=== PATIENT | female | born 1985 | race Caucasian/White ===

== ENCOUNTER 2022-11-22 18:00 | Inpatient (IN) | payer BC ==
[2022-11-22 22:33] VITALS: BMI 24.5
[2022-11-22] MEDS ORDERED: hydrALAZINE 20 MG/ML VIAL SLOW IVP PRN (22:35)
[2022-11-22] MEDS ORDERED: NS w/ Oxytocin 30 units 500 ML IV SCH ×2 (22:35→23:15)
[2022-11-22] MEDS ORDERED: Carboprost 250 MCG/ML AMP IM PRN (22:35)
[2022-11-22] MEDS ORDERED: Diphenoxylate HCl/Atropine Tablet PO PRN (22:35)
[2022-11-22] MEDS ORDERED: Ibuprofen 800 MG TAB PO PRN (22:35)
[2022-11-22] MEDS ORDERED: Lidocaine 1% (PF) 30 ML VIAL SC PRN (22:35)
[2022-11-22] MEDS ORDERED: Butorphanol Tartrate 1 MG/ML VIAL SLOW IVP PRN (22:35)
[2022-11-22] MEDS ORDERED: Ondansetron PF 4 MG/2 ML Vial IVP PRN (22:35)
[2022-11-22] MEDS ORDERED: HYDROcodone/Acetaminophen 5/325 mg Tablet PO PRN (22:35)
[2022-11-22] MEDS ORDERED: Promethazine HCl 25 MG/ML VIAL IM PRN (22:35)
[2022-11-22] MEDS ORDERED: Methylergonovine 0.2 MG/ML VIAL IM PRN (22:35)
[2022-11-22] MEDS ORDERED: Misoprostol 200 MCG TAB PR PRN (22:35)
[2022-11-22] MEDS ORDERED: Zolpidem Tartrate 5 MG TAB PO PRN (22:35)
[2022-11-22] MEDS ORDERED: Acetaminophen 500 MG TAB PO PRN (22:35)
[2022-11-22 23:28] LABS: Hemoglobin 11.2 g/dL (12.0-15.5); Mean Corpuscular HGB CONC 34.6 g/dL (32.0-36.0); Mean Corpuscular Hemoglobin 30.7 pg (27.0-33.0); Mean Corpuscular Volume 88.8 fl (81.6-98.3); Mean Platelet Volume 10.6 fl (7.4-10.4); Platelet Count 202 10x3/uL (150-450); RBC Distribution Width 13.1 % (11.5-14.5); Red Blood Cell (RBC) Count 3.65 10x6/uL (3.90-5.03); White Blood Cell (WBC) Count 9.9 10x3/uL (3.5-10.5)
[2022-11-22] MEDS: Misoprostol 100 MCG TAB VAG SCH (23:38)
[2022-11-22] MEDS: Lactated Ringer's 1,000 ML IV SCH (23:39)
[2022-11-22 23:58] LABS: HBSAg Index 0.17 S/CO (0-0.99); Hep B Surf Ag Non-Reactive S/CO (NonReactive)
[2022-11-22 23:59] LABS: Syphilis Antibody Nonreactive (Nonreactive); Syphilis Antibody Index 0.03 S/CO (<1.00 Non-Reactive)
[2022-11-23 00:25] LABS: SARS-CoV-2 NAA Rapid Test Not Detected (NotDetected)
[2022-11-23] MEDS: Misoprostol 100 MCG TAB VAG SCH ×2 (05:21→18:08)
[2022-11-23] MEDS ORDERED: Fentanyl 2 mcg/Bup 0.1% Cadd 100 ML ONE (12:12)
[2022-11-23] MEDS ORDERED: diphenhydrAMINE 50 MG/ML VIAL IVP PRN (13:09)
[2022-11-23] MEDS ORDERED: Acetaminophen 325 MG TAB PO PRN (13:09)
[2022-11-23] MEDS ORDERED: Promethazine HCl 25 MG/ML VIAL IM PRN (13:09)
[2022-11-23] MEDS ORDERED: Ondansetron PF 4 MG/2 ML Vial IVP PRN ×2 (13:09→16:23)
[2022-11-23] MEDS ORDERED: Naloxone HCl 0.4 mg/ml Vial IVP PRN ×2 (13:09)
[2022-11-23] MEDS ORDERED: ePHEDrine Sulfate 50 MG/10 ML VIAL SLOW IVP PRN (13:09)
[2022-11-23] MEDS ORDERED: Lactated Ringer's 500 ML IV PRN (13:09)
[2022-11-23] MEDS ORDERED: Moisturizing Cream (Eucerin) 113 GM JAR TOP PRN (13:09)
[2022-11-23] MEDS ORDERED: Fentanyl 2 mcg/Bupivacaine 0.1% Cassette 100 ML EPIDURAL SCH (13:15)
[2022-11-23] MEDS ORDERED: Communication Order-Pharmacy FS SCH (13:15)
[2022-11-23] MEDS ORDERED: Boostrix 0.5 ML (Tdap) VIAL (>/=7 yrs of age) IM ONE (16:23)
[2022-11-23] MEDS ORDERED: HYDROcodone/Acetaminophen 5/325 mg Tablet PO PRN ×2 (16:23)
[2022-11-23] MEDS ORDERED: Preparation H Ointment 28 GM TUBE PR PRN (16:23)
[2022-11-23] MEDS ORDERED: Lanolin Ointment 7 GM TUBE TOP PRN (16:23)
[2022-11-23] MEDS ORDERED: Milk Of Magnesia 30 ML UDCUP PO PRN (16:23)
[2022-11-23] MEDS ORDERED: Benzocaine-Menthol 82.5 ML CAN TOP PRN (16:23)
[2022-11-23] MEDS ORDERED: hydrALAZINE 20 MG/ML VIAL SLOW IVP PRN (16:23)
[2022-11-23] MEDS ORDERED: diphenhydrAMINE 25 MG CAP PO PRN (16:23)
[2022-11-23] MEDS ORDERED: Bisacodyl 10 MG SUPP PR PRN (16:23)
[2022-11-23] MEDS: Ferrous Sulfate 325 MG TAB PO SCH (18:07)
[2022-11-23] MEDS: Lactated Ringer's 1,000 ML IV SCH (18:08)
[2022-11-23] MEDS: Ibuprofen 800 MG TAB PO SCH (18:26)
[2022-11-23] MEDS: Docusate 100 MG CAP PO SCH (19:30)
[2022-11-24] MEDS: Ibuprofen 800 MG TAB PO SCH ×3 (00:28→17:08)
[2022-11-24] MEDS: Prenatal Vitamin 1 TAB PO SCH (09:12)
[2022-11-24] MEDS: Ferrous Sulfate 325 MG TAB PO SCH ×2 (09:13→17:07)
[2022-11-24] MEDS: Docusate 100 MG CAP PO SCH ×2 (09:13→20:36)
[2022-11-25] MEDS: Ibuprofen 800 MG TAB PO SCH ×2 (01:02→08:24)
[2022-11-25] MEDS: Docusate 100 MG CAP PO SCH (08:23)
[2022-11-25] MEDS: Prenatal Vitamin 1 TAB PO SCH (08:24)
[2022-11-25] MEDS: Ferrous Sulfate 325 MG TAB PO SCH (08:25)
[2022-11-25 09:58] VITALS: BP 121/65; TEMP 97.9
== END 2022-11-25 10:25 | disposition home or self-care (01) | DRG 807 ==
LOC: CSHLD 21:51 → CSHPP 11-23 16:35
PROVIDERS: ADMIT Student in an Organized Health Care Education/Training Program; ATTEND Student in an Organized Health Care Education/Training Program
PROC: 10E0XZZ Delivery of Products of Conception, External Approach (ICD-10-PCS; principal; 2022-11-23)
PROC: 3E0P7VZ Introduction of Hormone into Female Reproductive, Via Natural or Artificial Opening (ICD-10-PCS; 2022-11-23)
DX: O24.420 Gestational diabetes mellitus in childbirth, diet controlled (principal); Z37.0 Single live birth; O99.52 Diseases of the respiratory system complicating childbirth; J45.909 Unspecified asthma, uncomplicated; Z20.822 Contact with and (suspected) exposure to COVID-19; Z3A.39 39 weeks gestation of pregnancy; Z91.040 Latex allergy status
CPT/HCPCS: 36415; 85027; 86780; 86850; 86900; 86901; 87340; J0595; J2210; J7120; U0002